=== PATIENT | female | born 1980 | race Caucasian/White ===

== ENCOUNTER 2016-12-23 01:01 | Emergency (ER) | payer BC, MEDICAID ==
[2016-12-23 04:05] VITALS: BP 112/68
== END 2016-12-23 04:05 | disposition home or self-care (01) ==
LOC: ED 01:01
DX: K21.9 Gastro-esophageal reflux disease without esophagitis (principal); N39.0 Urinary tract infection, site not specified

== ENCOUNTER 2020-06-09 11:49 | Emergency (ER) | payer BC, SELFPAY ==
[~2020-06-09] VITALS: Ht 157.5 cm; Wt 63.5 kg
[2020-06-09 11:52] VITALS: Ht 157.5 cm; Wt 63.5 kg
[2020-06-09 13:36] VITALS: BP 121/45
== END 2020-06-09 13:36 | disposition home or self-care (01) ==
LOC: ED 11:49
DX: R05 Cough (principal); R06.02 Shortness of breath; Z20.828 Contact with and (suspected) exposure to other viral communicable diseases